=== PATIENT | male | born 1995 | race African-American/Black ===

== ENCOUNTER 2024-03-25 07:58 | Emergency (ER) | payer OTHER ==
[~2024-03-25] VITALS: Ht 190.5 cm; Wt 96.0 kg
[2024-03-25 08:04] VITALS: O2SAT 99
[2024-03-25 08:08] VITALS: BP 108/78; PULSE 77; RESP 18; TEMP 98.7; O2SAT 99
[2024-03-25] MEDS: LIDOCAINE 5% PATCH TOP SCH (08:55)
[2024-03-25] MEDS: IBUPROFEN 400MG TABLET PO ONE (08:56)
[2024-03-25] MEDS: ACETAMINOPHEN 325MG TABLET PO ONE (08:56)
== END 2024-03-25 09:22 | disposition home or self-care (01) ==
LOC: ER 07:58
DX: M54.50 Low back pain, unspecified (principal)
CPT/HCPCS: 99283

== ENCOUNTER 2024-04-01 14:02 | Emergency (ER) | payer BC, OTHER ==
[~2024-04-01] VITALS: Ht 182.9 cm; Wt 85.0 kg
[2024-04-01 14:17] VITALS: BP 120/93; RESP 18; TEMP 98.6; O2SAT 98
[2024-04-01 14:39] VITALS: PULSE 108; O2SAT 98
== END 2024-04-01 17:38 | disposition left against medical advice (07) ==
LOC: ER 14:02
DX: R50.9 Fever, unspecified (principal); Z53.21 Procedure and treatment not carried out due to patient leaving prior to being seen by health care provider

== ENCOUNTER 2024-04-26 11:10 | Emergency (ER) | payer BC, OTHER ==
[~2024-04-26] VITALS: Ht 188 cm; Wt 90.0 kg
[2024-04-26 11:13] VITALS: O2SAT 99
[2024-04-26] MEDS ORDERED: TC025C15 TP (12:05)
[2024-04-26 12:17] VITALS: BP 127/79; PULSE 96; RESP 18; TEMP 36.94740; O2SAT 99
== END 2024-04-26 12:13 | disposition home or self-care (01) ==
LOC: ER 11:10
DX: L23.9 Allergic contact dermatitis, unspecified cause (principal); Z91.010 Allergy to peanuts
CPT/HCPCS: 99283

== ENCOUNTER 2024-11-03 03:54 | Emergency (ER) | payer BC, OTHER ==
[~2024-11-03] VITALS: Ht 188 cm; Wt 98.0 kg
[~2024-11-03 03:54] MED LIST: TC025C15 TP
[2024-11-03 04:09] VITALS: O2SAT 100
[2024-11-03 04:16] VITALS: BP 124/88; PULSE 76; RESP 16; TEMP 36.7; O2SAT 100
[2024-11-03] MEDS ORDERED: CEPH500C2 MT (04:35)
== END 2024-11-03 04:44 | disposition home or self-care (01) ==
LOC: ER 03:54
DX: L08.9 Local infection of the skin and subcutaneous tissue, unspecified (principal)
CPT/HCPCS: 99283